=== PATIENT | male | born 1960 | race Two or more races ===

== ENCOUNTER 2022-09-10 14:14 | Inpatient (IN) | payer BC ==
[~2022-09-10] VITALS: Ht 152.4 cm; Wt 79.4 kg
--- NOTE | 2022-09-10 15:17 | NUR ---
PACIENTE ALERTA Y ORIENTADO POR SEPIDEH. REFIERE DOLOR ABDOMINAL DESDE LAS 10AM
[2022-09-10] MEDS ORDERED: ZESTRIL10 M1 (15:18)
--- NOTE | 2022-09-10 16:15 | NUR ---
SE EDUCA A PTE SOBRE [place] MEDICO LISETTE REFIERE ENTENDER. SE NARDA MUESTRAS DE LABORATORIO UTILIZANDO MEDIDAS ASEPTICAS. SE COLOCA H/L A PTE Y SE ADMINISTRAN MEDICAMENTOS LOS CUALES TOLERA.
== END 2022-09-13 17:15 | disposition home or self-care (01) | DRG 343 ==
LOC: ER 14:14 → SURH 20:39
PROVIDERS: Surgery; ADMIT Internal Medicine; ATTEND Internal Medicine
PROC: BW21ZZZ Computerized Tomography (CT Scan) of Abdomen and Pelvis (ICD-10-PCS; 2022-09-10)
PROC: 0DTJ4ZZ Resection of Appendix, Percutaneous Endoscopic Approach (ICD-10-PCS; principal; 2022-09-11 08:00)
DX: K35.891 Other acute appendicitis without perforation, with gangrene (principal); Z20.822 Contact with and (suspected) exposure to COVID-19